=== PATIENT | female | born 1980 | race Caucasian/White ===

== ENCOUNTER 2017-02-12 09:04 | Emergency (ER) | payer BC, OTHER ==
--- NOTE | 2017-02-12 09:59 | ER Document Report ---
HPI - HPI Pain Level: 2 Notes: Patient is a 36yo female who presents to the ED c/o nasal selena/discharge, cough , loss of voice, ear pressure, sore throat x2-3 days. Pt states that she has been using some otc meds with minimal relief. She is still eating/drinking without any difficulties. The cough is nonproductive and dry. Her nasal discharge is clear. She denies any recent travel, sick contacts, or recent illness. Denies any smoking or drug use. Denies any headache, fever, neck pain , chest pain, palpitations, syncope, shortness of breath, wheeze, dyspnea, abdominal pain, nausea/vomiting/diarrhea, urinary retention, dysuria, hematuria , or rash. - ROS Notes: REVIEW OF SYSTEMS: CONSTITUTIONAL : Denies fever, chills, or sweats. Denies recent illness. EENT: see hpi CARDIOVASCULAR: Denies chest pain. Denies palpitations or racing or irregular heart beat. Denies ankle edema. RESPIRATORY: see hpi GASTROINTESTINAL: Denies abdominal pain or distention. Denies nausea, vomiting , or diarrhea. Denies blood in vomitus, stools, or per rectum. Denies black, tarry stools. Denies constipation. GENITOURINARY: Denies difficulty urinating, painful urination, burning, frequency, blood in urine, or discharge. MUSCULOSKELETAL: Denies back or neck pain or stiffness. Denies joint pain or swelling. SKIN: Denies rash, lesions or sores. NEUROLOGICAL: Denies confusion or altered mental status. Denies passing out or loss of consciousness. Denies dizziness or lightheadedness. Denies headache. Denies weakness or paralysis or loss of use of either side. Denies problems with gait or speech. Denies sensory loss, numbness, or tingling. Denies seizures. PSYCHIATRIC: Denies anxiety or stress. Denies depression, suicidal ideation, or homicidal ideation. ALL OTHER SYSTEMS REVIEWED AND NEGATIVE. Dictation was performed using [employer] voice recognition software - CARDIOVASCULAR Cardiovascular: DENIES: Chest pain - REPRODUCTIVE Reproductive: DENIES: : - DERM Skin Color: Normal Past Medical History - Social History Smoking Status: Never Smoker Chew tobacco use (# tins/day): No Frequency of alcohol use: Rare Drug Abuse: None Family History: Reviewed & Not Pertinent, Other - See above Neurological Medical History: Reports: Hx Migraine Renal/ Medical History: Denies: Hx Peritoneal Dialysis Psychiatric Medical History: Reports: Hx Bipolar Disorder, Hx Depression, Hx Schizophrenia Past Surgical History: Reports: Hx Section - Immunizations Hx Diphtheria, Pertussis, Tetanus Vaccination: Yes Vertical Provider Document - CONSTITUTIONAL Agree With Documented VS: Yes Notes: PHYSICAL EXAMINATION: GENERAL: Well-appearing, well-nourished and in no acute distress. HEAD: Atraumatic, normocephalic. EYES: Pupils equal round and reactive to light, extraocular movements intact, sclera anicteric, conjunctiva are normal. ENT: EAC clear b/l. TM's intact b/l without erythema, fluid, or perforation. Nares patent and with clear discharge. oropharynx clear without exudates. 1+ tonsilar hypertrophy with minimal erythema. Moist mucous membranes. No sinus tenderness. + hoarseness noted NECK: Normal range of motion, supple without lymphadenopathy. No rigidity/ meningismus. LUNGS: Breath sounds clear to auscultation bilaterally and equal. No wheezes rales or rhonchi. HEART: Regular rate and rhythm without murmurs, rubs, gallops. Musculoskeletal: FROM to passive/active. Strength 5+/5. Extremities: No cyanosis, clubbing, or edema b/l. Peripheral pulses 2+. Capillary refill less than 3 seconds. NEUROLOGICAL: Cranial nerves grossly intact. Normal speech, normal gait. Normal sensory, motor exams PSYCH: Normal mood, normal affect. SKIN: Warm, Dry, normal turgor, no rashes or lesions noted. - INFECTION CONTROL TRAVEL OUTSIDE OF THE [place] IN LAST 30 DAYS: No - RESPIRATORY O2 Sat by Pulse Oximetry: 99 Course - Re-evaluation Re-evalutation: 02/12/17 10:42 Patient is an afebrile, well-hydrated, 36-year-old female who presents the ED with acute URI, pharyngitis, laryngitis, suspect viral infection at this time. Vitals are stable. PE otherwise unremarkable. Rapid strep test was negative. Low suspicion for any ACS, PE, pericarditis, pneumothorax, dissection, sepsis, meningitis, peritonsillar/pharyngeal abscess, respiratory compromise, Anatoliy's angina, or other emergent systemic condition at this time. Patient is aware that her condition can change from initial presentation and she needs to monitor symptoms closely and seek medical attention if any acute changes. I will send her home with a prescription for a steroid taper as well as Tessalon Perles. Conservative measures otherwise for symptoms. Recheck with your PCM this week. Return to the ED with any worsening/concerning symptoms otherwise as reviewed in discharge. Patient is in agreement. - Vital Signs Vital signs: Temp Pulse Resp BP Pulse Ox 98.4 F 97 18 150/84 H 99 02/12/17 09:06 02/12/17 09:06 02/12/17 09:06 02/12/17 09:06 02/12/17 09:06 Discharge - Discharge Clinical Impression: URI (upper respiratory infection) Qualifiers: URI type: unspecified URI Qualified Code(s): J06.9 - Acute upper respiratory infection, unspecified Condition: Stable Disposition: HOME, SELF-CARE Instructions: Sore Throat ([facility]), Upper Respiratory Illness ([facility]), Viral Syndrome ([facility]) Additional Instructions: Maintain adequate fluid intake Take meds as directed tylenol/ibuprofen as needed salt water gargles, throat sprays nasal saline rinses over the counter cold medication as needed for symptoms Humidified air may help F/u: with your PCM in 2-3 days for a recheck Return to the ED with any fever, worsening pain, chest pain, palpitations, syncope, worsening THAPA, neck pain/stiffness, shortness of breath, wheezing, drooling, trouble swallowing/breathing, abdominal pain, n/v/d, rash, or worsening/concerning symptoms otherwise. Prescriptions: Benzonatate [Tessalon Perle 100 mg Capsule] 100 mg PO Q8HP PRN #15 cap PRN Reason: Methylprednisolone [Medrol Dosepack (4 mg/Tab) 21 Tab/Dosepak] 4 mg PO ASDIR PRN #21 tab.ds.pk PRN Reason: Forms: Elevated Blood Pressure Referrals: MELANIA BELL PA-C [Primary Care Provider] - Follow up as needed
[2017-02-12 10:44] VITALS: BP 145/80
== END 2017-02-12 10:25 | disposition home or self-care (01) ==
LOC: ER 09:04
DX: J06.9 Acute upper respiratory infection, unspecified (principal); R09.81 Nasal congestion; R05 Cough; J02.9 Acute pharyngitis, unspecified; H92.09 Otalgia, unspecified ear
CPT/HCPCS: 87070; 87880; 99283

== ENCOUNTER 2017-02-14 19:44 | Emergency (ER) | payer OTHER ==
[2017-02-14 20:25] VITALS: BP 152/90
[2017-02-14] MEDS ORDERED: GUAIFENESIN/D-METHORPHAN (200-20 MG) SYRUP 10 ML PO ONE (22:09)
[2017-02-14] MEDS ORDERED: AZITHROMYCIN 250 MG TABLET PO ONE (22:09)
--- NOTE | 2017-02-14 22:09 | ER Document Report ---
ED ENT - General Chief Complaint: Ear Pain Stated Complaint: EARACHE,CHEST TIGHTNESS Time Seen by Provider: 02/14/17 22:04 Mode of Arrival: Ambulatory Information source: Patient Notes: Patient is a 36-year-old female who presents to the ER for the second time for sinus congestion since the of this month. Patient states that her symptoms all started on the eighth of this month but she was seen here on the and told she had a viral upper respiratory infection. She has been taking Tessalon Perles and had a prednisone Dosepak that she took which have not helped. She complains of worsening sinus pressure, fever and chills but she has not taken her temperature. She admits to productive cough at this point with shortness of breath and wheezing. She also complains of left ear pain that began 2 days ago. She denies any drainage from the ear or loss of hearing. TRAVEL OUTSIDE OF THE [place] IN LAST 30 DAYS: No - Related Data Allergies/Adverse Reactions: nickel [Nickel] Allergy (Verified 02/12/17 09:09) risperidone [From Risperdal] Allergy (Verified 02/12/17 09:09) swelling Past Medical History - General Information source: Patient - Social History Smoking Status: Unknown if Ever Smoked Chew tobacco use (# tins/day): No Frequency of alcohol use: None Drug Abuse: None Family History: Reviewed & Not Pertinent, Other - See above Patient has suicidal ideation: No Patient has homicidal ideation: No Neurological Medical History: Reports: Hx Migraine Renal/ Medical History: Denies: Hx Peritoneal Dialysis Psychiatric Medical History: Reports: Hx Bipolar Disorder, Hx Depression, Hx Schizophrenia Past Surgical History: Reports: Hx Section - Immunizations Hx Diphtheria, Pertussis, Tetanus Vaccination: Yes Review of Systems - Review of Systems Constitutional: See HPI EENT: See HPI Cardiovascular: No symptoms reported Respiratory: See HPI Gastrointestinal: No symptoms reported Genitourinary: No symptoms reported Female Genitourinary: No symptoms reported Musculoskeletal: No symptoms reported Skin: No symptoms reported Hematologic/Lymphatic: No symptoms reported Neurological/Psychological: No symptoms reported Physical Exam - Vital signs Vitals: Temp Pulse Resp BP Pulse Ox 97.9 F 87 16 152/90 H 100 02/14/17 20:24 02/14/17 20:24 02/14/17 20:24 02/14/17 20:24 02/14/17 20:24 - Notes Notes: PHYSICAL EXAMINATION: GENERAL: Mildly ill-appearing, but in no acute distress. HEAD: Atraumatic, normocephalic. EYES: Pupils equal round and reactive to light, extraocular movements intact, sclera anicteric, conjunctiva are normal. ENT: ear canals without erythema or foreign body, TMs pearly north with good bony landmarks, nares with purulent discharge, oropharynx erythematous with enlarged tonsils without exudates. Moist mucous membranes. Maxillary and frontal sinuses tender to palpation NECK: Normal range of motion, supple with bilateral cervical lymphadenopathy, tender to palpation LUNGS: CTAB and equal. No wheezes rales or rhonchi. HEART: Regular rate and rhythm without murmurs ABDOMEN: Soft, no tenderness. No guarding, no rebound BACK: no vertebral tenderness, normal ROM GI/: no CVA tenderness EXTREMITIES: Normal range of motion, no pitting edema. No cyanosis. NEUROLOGICAL: Cranial nerves grossly intact. Normal sensory/motor exams. PSYCH: Normal mood, normal affect. SKIN: Warm, Dry, normal turgor, no rashes or lesions noted Course - Vital Signs Vital signs: Temp Pulse Resp BP Pulse Ox 97.9 F 87 16 152/90 H 100 02/14/17 20:24 02/14/17 20:24 02/14/17 20:24 02/14/17 20:24 02/14/17 20:24 Discharge - Discharge Clinical Impression: Bronchitis Sinusitis Qualifiers: Sinusitis location: frontal Chronicity: acute Recurrence: non-recurrent Qualified Code(s): J01.10 - Acute frontal sinusitis, unspecified Condition: Stable Disposition: HOME, SELF-CARE Instructions: Sinusitis ([facility]), Bronchitis ([facility]) Additional Instructions: Return immediately for any new or worsening symptoms. Follow up with primary care provider, call tomorrow to make followup appointment. Prescriptions: Azithromycin [Zithromax 250 mg Tablet] 250 mg PO ASDIR PRN #6 tablet PRN Reason: D-Methorphan Hb/Prometh HCl [Promethazine-Dm Syrup] 5 ml PO Q8 PRN #120 ml PRN Reason: Fluticasone Propionate [Flonase Nasal [place] 50 Mcg/[place] 16 gm] 2 spray NASL Q12 #1 inhaler Forms: Return to Work
== END 2017-02-14 22:22 | disposition home or self-care (01) ==
LOC: ER 19:44
DX: J40 Bronchitis, not specified as acute or chronic (principal); J01.10 Acute frontal sinusitis, unspecified; H92.09 Otalgia, unspecified ear; R07.9 Chest pain, unspecified; R09.81 Nasal congestion
CPT/HCPCS: 99282; J3490

== ENCOUNTER 2017-03-11 02:35 | Emergency (ER) | payer OTHER ==
--- NOTE | 2017-03-11 03:21 | ER Document Report ---
HPI - HPI Patient complains to provider of: Left ear pain, throat pain Pain Level: 4 Context: Patient is a 36-year-old female that comes emergency department for chief complaint of left ear pain, she states she has been sick for almost a month with congestion but she states that she has developed significantly worse left ear pain with popping in her left ear. She also states that she is developing an increasingly sore throat. She denies cough, shortness of breath, vomiting, sinus pressure, fever. She does not smoke. - REPRODUCTIVE Reproductive: DENIES: : - DERM Skin Color: Normal Past Medical History - General Information source: Patient - Social History Smoking Status: Never Smoker Frequency of alcohol use: Occasional Drug Abuse: None Lives with: Family Family History: Reviewed & Not Pertinent, Other - See above Neurological Medical History: Reports: Hx Migraine Renal/ Medical History: Denies: Hx Peritoneal Dialysis Psychiatric Medical History: Reports: Hx Bipolar Disorder, Hx Depression, Hx Schizophrenia Past Surgical History: Reports: Hx Section - Immunizations Hx Diphtheria, Pertussis, Tetanus Vaccination: Yes Vertical Provider Document - CONSTITUTIONAL General Appearance: WD/WN, No Apparent Distress - INFECTION CONTROL TRAVEL OUTSIDE OF THE [place] IN LAST 30 DAYS: No - HEENT HEENT: Atraumatic, Normocephalic. negative: Normal ENT Exam - Left tympanic membrane with serous effusion and loss of landmarks. Sinus congestion, no sinus tenderness, minimally erythematous throat, normal ENT exam otherwise - RESPIRATORY Respiratory: Breath Sounds Normal, No Respiratory Distress - CARDIOVASCULAR Cardiovascular: Regular Rate, Regular Rhythm - GI/ABDOMEN Gastrointestinal: Abdomen Soft, Abdomen Non-Tender - MUSCULOSKELETAL/EXTREMETIES Musculoskeletal/Extremeties: MAEW, FROM, Non-Tender - NEURO Level of Consciousness: Awake, Alert, Appropriate Discharge - Discharge Clinical Impression: Left ear pain Otitis media Qualifiers: Otitis media type: other nonsuppurative Chronicity: acute Laterality: unspecified laterality Recurrence: not specified as recurrent Qualified Code(s) : H65.199 - Other acute nonsuppurative otitis media, unspecified ear Pharyngitis Qualifiers: Pharyngitis/tonsillitis etiology: unspecified etiology Qualified Code(s): J02.9 - Acute pharyngitis, unspecified Condition: Stable Disposition: HOME, SELF-CARE Additional Instructions: Examination shows otitis media on the left side (middle ear infection). Continue flonase, take Amoxicillin, Sudafed. Take the Diana daily as prescribed for suspected seasonal allergy component. Take ibuprofen for pain. Follow up with Primary Care. Return to the ED for any concerning symptoms - vomiting, fever, dizziness, swelling behind the ear, or any other concerning symptoms. Prescriptions: Amoxicillin Trihydrate [Amoxil 875 mg Tablet] 1 tab PO BID #20 tablet Fexofenadine HCl [Diana] 180 mg PO DAILY #30 tablet Pseudoephedrine HCl [Sudafed 12-Hour] 120 mg PO Q12 #20 tablet.sa Forms: Return to Work Referrals: MELANIA BELL PA-C [Primary Care Provider] - Follow up as needed
== END 2017-03-11 04:04 | disposition home or self-care (01) ==
LOC: ER 02:35
DX: H65.199 Other acute nonsuppurative otitis media, unspecified ear (principal); J02.9 Acute pharyngitis, unspecified
CPT/HCPCS: 87070; 87880; 99282

== ENCOUNTER 2018-03-31 20:50 | Emergency (ER) | payer OTHER ==
[2018-03-31] MEDS ORDERED: NAPROXEN 250 MG TABLET PO ONE (21:51)
--- NOTE | 2018-03-31 21:52 | ER Document Report ---
ED Extremity Problem, Upper - General Chief Complaint: Elbow Injury Stated Complaint: WC/RIGHT ELBOW Time Seen by Provider: 03/31/18 21:41 Mode of Arrival: Ambulatory Information source: Patient Notes: 38-year-old female presented to ED for complaint of pain to her right elbow. She stated started when she lifted a case of any drink drinks at work and she felt a pop. She has pain to her right elbow. There is no swelling or bruising noted. Patient is able to move the elbow but with pain. Patient is alert and oriented respirations regular and unlabored speaking in full sentences walks with a even steady gait. TRAVEL OUTSIDE OF THE [place] IN LAST 30 DAYS: No - HPI Patient complains to provider of: Right, Elbow Onset: This evening Recent injury: Possibly Where: Work Quality of pain: Achy - Stepped every once in a while she has a sharp pain Severity of pain: Moderate Pain Level: 2 Context: Other - Lifted a case of energy drinks at work Associated symptoms: None Exacerbated by: Movement Relieved by: Nothing Similar symptoms previously: No Recently seen / treated by doctor: No - Related Data Allergies/Adverse Reactions: nickel [Nickel] Allergy (Verified 03/11/17 02:47) risperidone [From Risperdal] Allergy (Verified 03/11/17 02:47) swelling Past Medical History - General Information source: Patient - Social History Smoking Status: Never Smoker Cigarette use (# per day): No Chew tobacco use (# tins/day): No Smoking Education Provided: No Frequency of alcohol use: None Drug Abuse: None Lives with: Family - son Family History: Reviewed & Not Pertinent Patient has suicidal ideation: No Patient has homicidal ideation: No - Past Medical History Cardiac Medical History: Reports: None Pulmonary Medical History: Reports: None EENT Medical History: Reports: None Neurological Medical History: Reports: Hx Migraine Endocrine Medical History: Reports: None Renal/ Medical History: Reports: None Malignancy Medical History: Reports: None GI Medical History: Reports: None Musculoskeletal Medical History: Reports None Skin Medical History: Reports None Psychiatric Medical History: Reports: Hx Bipolar Disorder, Hx Depression, Hx Schizophrenia Traumatic Medical History: Reports: None Infectious Medical History: Reports: None Past Surgical History: Reports: Hx Section - Immunizations Hx Diphtheria, Pertussis, Tetanus Vaccination: Yes - 2017 Review of Systems - Review of Systems Constitutional: No symptoms reported EENT: No symptoms reported Cardiovascular: No symptoms reported Respiratory: Cough Gastrointestinal: No symptoms reported Genitourinary: No symptoms reported Female Genitourinary: No symptoms reported Musculoskeletal: Joint pain - right elbow. denies: Joint swelling Skin: No symptoms reported Hematologic/Lymphatic: No symptoms reported Neurological/Psychological: No symptoms reported Physical Exam - Vital signs Vitals: Temp Pulse Resp BP Pulse Ox 98.3 F 82 20 130/84 H 95 03/31/18 21:02 03/31/18 21:02 03/31/18 21:02 03/31/18 21:02 03/31/18 21:02 Interpretation: Normal - General General appearance: Appears well, Alert - HEENT Head: Normocephalic, Atraumatic Eyes: Normal Pupils: PERRL - Respiratory Respiratory status: No respiratory distress Chest status: Nontender Breath sounds: Normal Chest palpation: Normal - Cardiovascular Rhythm: Regular Heart sounds: Normal auscultation Murmur: No - Abdominal Inspection: Normal Distension: No distension Bowel sounds: Normal Tenderness: Nontender Organomegaly: No organomegaly - Back Back: Normal, Nontender - Extremities General upper extremity: Normal inspection, Normal color, Normal temperature General lower extremity: Normal inspection, Nontender, Normal color, Normal ROM , Normal temperature, Normal weight bearing. No: Pao's sign Arm: Normal, Nontender Elbow: Tender, Limited ROM - due to pain Forearm: Normal, Nontender Wrist: Normal, Nontender Hand: Normal, Nontender - Neurological Neuro grossly intact: Yes Cognition: Normal Orientation: AAOx4 [place] Coma Scale Eye Opening: Spontaneous Eduar Coma Scale Verbal: Oriented Eduar Coma Scale Motor: Obeys Commands [place] Coma Scale Total: 15 Speech: Normal Motor strength normal: LUE, RUE, LLE, RLE Sensory: Normal - Psychological Associated symptoms: Normal affect, Normal mood - Skin Skin Temperature: Warm Skin Moisture: Dry Skin Color: Normal Course - Re-evaluation Re-evalutation: 04/01/18 01:44 She was treated with naproxen and a sling as well as ice pack for her pain to her right elbow. There is no obvious acute injuries. X-ray was negative. There is no swelling or redness or bruising to the area. Patient was instructed to follow-up with her primary doctor her workers [facility] doctor and orthopedics if she continues to have any pain. Patient was discharged home. - Vital Signs Vital signs: Temp Pulse Resp BP Pulse Ox 98.0 F 82 20 130/78 H 98 03/31/18 23:00 03/31/18 23:00 03/31/18 23:00 03/31/18 23:00 03/31/18 23:00 - Diagnostic Test Radiology reviewed: Image reviewed, Reports reviewed Procedures - Immobilization Right Elbow Time completed: 23:31 Pre-Proc Neuro Vasc Exam: Normal Immobilizer type: Sling Performed by: RN Post-Proc Neuro Vasc Exam: Normal Alignment checked and good: Yes Discharge - Discharge Clinical Impression: Injury of right elbow region Condition: Stable Disposition: HOME, SELF-CARE Instructions: Forearm Exercise Program ([facility]) Additional Instructions: You were seen today for pain in your right elbow after lifting a case of energy drinks. X-ray is negative for any fractures or effusions. You state you are having decreased pain with range of motion to your elbow after elevation ice and anti-inflammatories. Anti-Inflammatory Medication You have received a prescription for an antiinflammatory agent. This is an excellent, safe drug for pain control. In addition, it has potent antiinflammatory effects which are beneficial, especially in the treatment of injuries, arthritis, or tendonitis. It's best to take this medicine with food. Persons with ulcer disease or allergy to aspirin should notify their physician of this before taking this drug. Take the medication exactly as prescribed. Don't take additional doses unless instructed to do so by your doctor. If you develop wheezing, shortness of breath, hives, faintness, stomach pain, vomiting, or dark black stools, return for re-evaluation at once. Ice & Elevation Apply ice packs frequently against the painful area. Many different schedules are recommended, such as "20 minutes on, 20 minutes off" or "one hour ice, two hours rest." If you need to work, you may need to go longer between ice treatments. You should plan to have the area ice packed AT LEAST one- fourth of the time. The ice should be applied over the wrap, tape, or splint, or over a layer of cloth -- not directly against the skin. Some ice bags have a built-in cloth and can be put directly on the skin. Your injured part should be elevated as much as possible over the next 48 hours. Try to keep the injury above the level of the heart. Avoid use of the injured area. Elevation and rest will decrease the swelling. I have given you a written report of your x-ray. Please follow-up with your Worker[employer] doctor tomorrow as well as orthopedics if you continue to have pain in this elbow. FOLLOW-UP CARE: If you have been referred to a physician for follow-up care, call the physician s office for an appointment as you were instructed or within the next two days. If you experience worsening or a significant change in your symptoms, notify the physician immediately or return to the Emergency Department at any time for re-evaluation. Prescriptions: Naproxen 500 mg PO BIDP PRN #14 tablet PRN Reason: Forms: Elevated Blood Pressure, Return to Work Referrals: MELANIA BELL PA-C [NO LOCAL MD] - Follow up as needed ALEC ISAACS MD [ACTIVE STAFF] - Follow up as needed
--- NOTE | 2018-03-31 22:45 | RADIOLOGY REPORT (SQ) ---
3 VIEWS OF THE RIGHT ELBOW HISTORY: Pain while lifting case of drinks COMPARISON: None. FINDINGS: Bone mineralization is normal. No acute fracture or malalignment. Joint spaces are preserved. No joint effusion or soft tissue swelling. IMPRESSION: No acute fracture is seen.
[2018-04-01 00:02] VITALS: BP 130/78
== END 2018-03-31 23:35 | disposition home or self-care (01) ==
LOC: ER 20:50
DX: S59.901A Unspecified injury of right elbow, initial encounter (principal); M25.521 Pain in right elbow; X50.0XXA Overexertion from strenuous movement or load, initial encounter; Y99.0 Civilian activity done for income or pay; R05 Cough; Z88.8 Allergy status to other drugs, medicaments and biological substances
CPT/HCPCS: 99283

== ENCOUNTER 2020-05-18 10:44 | Emergency (ER) | payer OTHER ==
--- NOTE | 2020-05-18 11:16 | ER Document Report ---
ED Medical Screen (RME) - General Chief Complaint: Medical Clearance Stated Complaint: MEDICAL CLEARANCE Time Seen by Provider: 05/18/20 11:03 TRAVEL OUTSIDE OF THE [place] IN LAST 30 DAYS: No - HPI Notes: 05/18/20 11:13 40-year-old female with a history of untreated Sneha's presents to the emergency room for evaluation of racing heart and lip numbness after she injected herself with testosterone approximately 30 minutes ago. She was concerned that she hit a vein, she could not stop the bleeding, her doctor's office advised her to come to the emergency room. Bleeding is now controlled. Patient reports she feels like her heart is racing and she does have lip numbness, this is never happened to her before when she is injected herself with testosterone which she has been doing for years. Patient reports she was diagnosed with Sneha's, has not had any treatment for over a year. Denies any vaginal bleeding vaginal discharge, shortness of breath, chest tightness, chest pain, fevers or chills, nausea vomiting or diarrhea. States whenever she has had anxiety she has never had lip numbness before so this is concerning for her. She denies any history of hypertension, typically she states her blood pressure runs low. Today her pressure is high with systolic in the 170s I have greeted and performed a rapid initial assessment of this patient. A comprehensive ED assessment and evaluation of the patient, analysis of test results and completion of the medical decision making process will be conducted by additional ED providers. PHYSICAL EXAMINATION: GENERAL: Well-appearing, well-nourished and in no acute distress. HEAD: Atraumatic, normocephalic. EYES: Pupils equal round extraocular movements intact, conjunctiva are normal. NECK: Normal range of motion CV: s1, s2 regular LUNGS: No respiratory distress Musculoskeletal: Normal range of motion NEUROLOGICAL: Normal speech, normal gait. SKIN: Warm, Dry, normal turgor, no rashes or lesions noted. - Related Data Allergies/Adverse Reactions: nickel [Nickel] Allergy (Verified 05/18/20 11:03) risperidone [From Risperdal] Allergy (Verified 05/18/20 11:03) swelling Past Medical History Neurological Medical History: Reports: Hx Migraine Renal/ Medical History: Denies: Hx Peritoneal Dialysis Psychiatric Medical History: Reports: Hx Bipolar Disorder, Hx Depression, Hx Schizophrenia Past Surgical History: Reports: Hx Section - Immunizations Hx Diphtheria, Pertussis, Tetanus Vaccination: Yes - 2017 Physical Exam - Vital signs Vitals: Temp Pulse Resp BP Pulse Ox 97.6 F 66 18 174/97 H 99 05/18/20 10:50 05/18/20 10:50 05/18/20 10:50 05/18/20 10:50 05/18/20 10:50 Course - Vital Signs Vital signs: Temp Pulse Resp BP Pulse Ox 97.6 F 66 18 174/97 H 99 05/18/20 10:50 05/18/20 10:50 05/18/20 10:50 05/18/20 10:50 05/18/20 10:50
--- NOTE | 2020-05-18 11:47 | RADIOLOGY REPORT (SQ) ---
EXAM DESCRIPTION: CHEST SINGLE VIEW IMAGES COMPLETED DATE/TIME: 05/18/2020 11:28 am REASON FOR STUDY: Palpitation COMPARISON: None. NUMBER OF VIEWS: One view. TECHNIQUE: Single frontal radiographic view of the chest acquired. LIMITATIONS: None. FINDINGS: LUNGS AND PLEURA: No opacities, masses or pneumothorax. No pleural effusion. MEDIASTINUM AND HILAR STRUCTURES: No masses. Contour normal. HEART AND VASCULAR STRUCTURES: Heart normal in size. Normal vasculature. BONES: No acute findings. HARDWARE: None in the chest. OTHER: No other significant finding. IMPRESSION: NO SIGNIFICANT RADIOGRAPHIC FINDING IN THE CHEST. TECHNICAL DOCUMENTATION: JOB ID: [id number] 2010 [employer]- All Rights Reserved Reading location - IP/workstation name: [email or web address]
[2020-05-18 12:06] LABS: ALKALINE PHOSPHATASE 51 U/L (38-126); ANION GAP 5 (5-19); ASPARTATE AMINO TRANSFERASE 29 U/L (14-36); BILIRUBIN,DIRECT 0.1 mg/dL (0.0-0.4); BILIRUBIN,TOTAL 0.5 mg/dL (0.2-1.3); BLOOD UREA NITROGEN 10 mg/dL (7-20); CALCIUM 8.8 mg/dL (8.4-10.2); CARBON DIOXIDE 31 mmol/L (22-30); CHLORIDE 102 mmol/L (98-107); GLUCOSE 116 mg/dL (75-110); POTASSIUM 4.2 mmol/L (3.6-5.0); TOTAL PROTEIN 6.9 g/dL (6.3-8.2)
[2020-05-18 12:28] VITALS: BP 158/87
--- NOTE | 2020-05-18 13:07 | ER Document Report ---
ED General - General Chief Complaint: Other Stated Complaint: MEDICAL CLEARANCE Time Seen by Provider: 05/18/20 11:03 Notes: HPI: 40-year-old female presents secondary to injecting her right lateral thigh with testosterone which she has been doing for many years secondary to being transgender. She states that it kept bleeding from the site and [facility] sent her here for further evaluation. She states when I told her she had a come here she felt some palpitations and some numbness to the lips. Patient denies any and all chest pain. Patient denies any and all symptoms at this time. She believes she was anxious secondary to being told she has to come me with a history of anxiety. She currently denies any chest pain, palpi tations, and states that she has no pain to the right lateral thigh and the bleeding is stopped. She is on no blood thinning medications. ROS: See HPI All other review of systems reviewed and otherwise negative Reviewed vital signs and nursing note as charted by RN. PHYSICAL EXAM: CONSTITUTIONAL: Alert and oriented and responds appropriately to questions. Well-appearing; well-nourished HEAD: Normocephalic; atraumatic EYES: Sclerae not pale and there is no nystagmus ENT: Normal nose; no rhinorrhea; moist mucous membranes; pharynx without lesions noted NECK: Supple without meningismus; non-tender; no cervical lymphadenopathy, no masses CARD: Regular rate and rhythm; no murmurs; symmetric distal pulses RESP: Normal chest excursion without splinting or tachypnea; breath sounds clear and equal bilaterally ABD/GI: Normal bowel sounds; non-distended; soft, non-tender BACK: The back appears normal and is non-tender to palpation EXT: Normal ROM in all joints; no swelling, redness, erythema, bleeding to the right lateral thigh SKIN: No acute lesions noted NEURO: CN 2-12 intact; 5/5 bilateral upper and lower extremity strength with sensation intact to light touch PSYCH: The patient's mood and manner are appropriate. Grooming and personal hygiene are appropriate. TRAVEL OUTSIDE OF THE [place] IN LAST 30 DAYS: No - Related Data Allergies/Adverse Reactions: nickel [Nickel] Allergy (Verified 05/18/20 11:03) risperidone [From Risperdal] Allergy (Verified 05/18/20 11:03) swelling Home Medications: testerone injections. otc supplements. thyroid medication - not taken in a while. Past Medical History - Social History Smoking Status: Former Smoker Chew tobacco use (# tins/day): No Frequency of alcohol use: Occasional Drug Abuse: None Family History: Reviewed & Not Pertinent Patient has homicidal ideation: No Neurological Medical History: Reports: Hx Migraine Renal/ Medical History: Denies: Hx Peritoneal Dialysis Psychiatric Medical History: Reports: Hx Bipolar Disorder, Hx Depression, Hx Schizophrenia Past Surgical History: Reports: Hx Section - Immunizations Hx Diphtheria, Pertussis, Tetanus Vaccination: Yes - 2016 Physical Exam - Vital signs Vitals: Temp Pulse Resp BP Pulse Ox 97.6 F 66 18 174/97 H 99 05/18/20 10:50 05/18/20 10:50 05/18/20 10:50 05/18/20 10:50 05/18/20 10:50 Course - Re-evaluation Re-evalutation: Given the above history and physical, we will obtain basic labs including a TSH level. Patient denies any and all symptoms and the heart rate is currently 72. I do believe PE or ACS to be extremely unlikely. EKG shows heart of 57, normal sinus rhythm, normal axis, no obvious ST elevation or depression. 05/18/20 13:05 Labs as recorded. Vital signs are stable. Patient will be discharged home at this time. - Vital Signs Vital signs: Temp Pulse Resp BP Pulse Ox 97.6 F 66 18 158/87 H 99 05/18/20 11:03 05/18/20 10:50 05/18/20 10:50 05/18/20 12:27 05/18/20 10:50 - Laboratory Results Result Diagrams: 05/18/20 11:15 Laboratory Results Interpreted: 05/18/20 05/18/20 11:15 11:15 Carbon Dioxide 31 H Glucose 116 H TSH 11.90 H Critical Laboratory Results Reviewed: No Critical Results - Radiology Results Critical Radiology Results Reviewed: No Critical Results Discharge - Discharge Clinical Impression: Palpitations Bleeding from right hip wound Qualifiers: Encounter type: initial encounter Qualified Code(s): S71.001A - Unspecified open wound, right hip, initial encounter Condition: Good Disposition: HOME, SELF-CARE Additional Instructions: Come back immediately for any return of bleeding, palpitations, chest pain, leg swelling, fever, weakness or numbness, or any other acute problems. Please follow-up with the primary care physician for reassessment as discussed.
[2020-05-18 13:10] LABS: APPEARANCE,URINE CLEAR; BILIRUBIN,URINE NEGATIVE (NEGATIVE); COLOR,URINE YELLOW; GLUCOSE, URINE NEGATIVE (NEGATIVE); KETONES,URINE NEGATIVE (NEGATIVE); LEUKOCYTE ESTERASE,URINE NEGATIVE (NEGATIVE); NITRITE,URINE NEGATIVE (NEGATIVE); PROTEIN,URINE NEGATIVE (NEGATIVE); URINE SPECIFIC GRAVITY 1.011; UROBILINOGEN,URINE NEGATIVE mg/dL (<2.0)
--- NOTE | 2020-05-18 14:19 | EKG REPORT ---
SEVERITY:- NORMAL ECG - INCOMPLETE ANALYSIS DUE TO MISSING DATA IN PRECORDIAL LEAD(S) SINUS RHYTHM : Confirmed by: Cyndi Fernandes MD 18-May-2020 14:19:08
== END 2020-05-18 13:31 | disposition home or self-care (01) ==
LOC: ER 10:44
DX: S71.001A Unspecified open wound, right hip, initial encounter (principal); R00.2 Palpitations; X58.XXXA Exposure to other specified factors, initial encounter
CPT/HCPCS: 36415; 71045; 80053; 81001; 84443; 84484; 84702; 93005; 93010; 99285